=== PATIENT | male | born 2000 | race African-American/Black ===

== ENCOUNTER → 2018-09-21 | Outpatient (CLI) | payer OTHER ==
--- NOTE | 2018-09-21 10:37 | RADIOLOGY IMAGING REPORT ---
FACILITY: [facility] PATIENT NAME: Vinod Mtz : 2000 MR: [id number] V: [id number] EXAM DATE: ORDERING PHYSICIAN: BETSY FOWLER TECHNOLOGIST: Location: [facility] Patient: Vinod Mtz : 2000 Visit/Account:[id number] Date of Sevice: 09/21/2018 2 VIEWS CHEST INDICATION: Chest pain since Monday COMPARISON: None available FINDINGS: Heart size within normal limits. Lungs are clear without focal infiltrate or consolidation. No effusion or pneumothorax. No acute [place] finding. IMPRESSION: 1. No acute cardiopulmonary process. Report Dictated By: Bean Bruno MD at 09/21/2018 10:32 AM Report E-Signed By: Bean Bruno MD at 09/21/2018 10:33 AM WSN:[id number]
== END ==
LOC: RAD 10:11
PROVIDERS: ATTEND Emergency Medicine Sports Medicine
DX: R07.9 Chest pain, unspecified (principal)
CPT/HCPCS: 71046